=== PATIENT | male | born 1950 | race Caucasian/White ===

== ENCOUNTER 2017-08-22 12:39 | Day surgery (SDC) | payer MEDICARE ==
[~2017-08-22 12:39] MED LIST: Lactated Ringers 1,000 ML IV SCH; Propofol 200 MG/20 ML SDV ONE; Sodium Chloride 0.9% 5 ML Syringe FLUSH PRN
[2017-08-22] MEDS ORDERED: Propofol 200 MG/20 ML SDV ONE (13:13)
[2017-08-22] MEDS ORDERED: Propofol 200 MG/20 ML SDV IV ONE (13:42)
--- NOTE | 2017-08-22 13:47 | PCM.PN ---
- General Info Date of Service: 08/22/17 - Review of Systems Systems Review Comment:: 66-year-old male referred for his initial screening colonoscopy. Patient has been diagnosed with bladder cancer. He has also been diagnosed with CLL. He is medically stable to proceed with colonoscopy today. I have discussed the proposed colonoscopy with the patient. Risks such as but not limited to bleeding and GI injury reviewed. He appears to understand and agrees to proceed. - Patient Data Vitals - Most Recent: Last Vital Signs Temp 98.7 F 08/22/17 13:09 Pulse 54 L 08/22/17 13:09 Resp 16 08/22/17 13:09 BP 122/67 08/22/17 13:09 Pulse Ox 96 08/22/17 13:09 Weight - Most Recent: 77.111 kg Med Orders - Current: Current Medications Lactated Ringer's (Ringers, Lactated) 1,000 mls @ 50 mls/hr IV ASDIRECTED NEFTALI Last Admin: 08/22/17 13:31 Dose: 50 mls/hr Sodium Chloride (Syrex Flush) 5 ml FLUSH Q8HR PRN PRN Reason: Keep Vein Open Discontinued Medications Propofol (Diprivan 20 Ml) Confirm Administered Dose 200 mg .ROUTE .STK-MED ONE Stop: 08/22/17 12:23 Propofol (Diprivan 20 Ml) Confirm Administered Dose 200 mg .ROUTE .STK-MED ONE Stop: 08/22/17 12:24 - Problem List Review Problem List Initiated/Reviewed/Updated: Yes - My Orders Last 24 Hours: My Active Orders 08/22/17 12:30 Patient to Empty Bladder [RC] ASDIRECTED Peripheral IV Care [RC] . DIRECTED Verify Patient Consent Obtain [RC] ASDIRECTED Lactated Ringers [Ringers, Lactated] 1,000 ml IV ASDIRECTED Sodium Chloride 0.9% [Syrex Flush] 5 ml FLUSH Q8HR PRN Peripheral IV Insertion Adult [OM.PC] Routine 08/22/17 Breakfast Nothing Per Oral Diet [DIET] - Assessment Assessment:: Colon cancer screening Personal history of cancer - Plan Plan:: Colonoscopy
--- NOTE | 2017-08-22 14:43 | PCM.OPNOTE ---
- General Post-Op/Procedure Note Date of Surgery/Procedure: 08/22/17 Operative Procedure(s): Colonoscopy with polypectomy Findings: Multiple colon polyps Pre Op Diagnosis: Colon cancer screening Post-Op Diagnosis: Colon polyps Anesthesia Technique: MAC Primary Surgeon: Bang Carr Pathology: Colon polyps Output, Urine Amount: 0 EBL in mLs: 2 Complications: None Condition: Good
--- NOTE | 2017-08-23 00:58 | OR ---
DATE OF SURGERY: 08/22/2017 SURGEON: Bang Carr MD REFERRING PROVIDER: Bozena Camilo MD PREOPERATIVE DIAGNOSIS: 1. Colon cancer screening. 2. Personal history of cancer. POSTOPERATIVE DIAGNOSIS: Colon polyps. OPERATION PERFORMED: Colonoscopy with polypectomy. INDICATIONS FOR SURGERY: This 66-year-old male presents today for his initial screening colonoscopy. He has been diagnosed with both bladder cancer as well as CLL. FINDINGS: Multiple polyps are noted on today's exam. There is a pedunculated 1 cm polyp noted in the sigmoid colon 25 cm from the anal verge. In the cecum, there was a cluster of two polyps, 4 mm polyp and an 8 mm polyp, both sessile in configuration. There is another 2 mm polyp noted in the ascending colon. The remainder of the colon appears normal. PROCEDURE IN DETAIL: The patient was taken to the operating room. He was given intravenous sedation and with him in the left lateral decubitus position, digital rectal exam was performed showing no rectal masses. The Olympus colonoscope was inserted into the rectum. Retroflexed examination of the rectal canal was performed. The scope was then carefully advanced under direct visualization through the entire length of the colon until the cecum was reached. Cecal acquisition was confirmed by noting the normal internal cecal anatomy including the appendiceal orifice and ileocecal valve. The light was also noted to transilluminate the abdominal wall in the right lower quadrant. The colon was somewhat tortuous and was it was difficult to maneuver the scope through the entire colon but eventually this was able to be safely accomplished. In the cecum, the above described two polyps were identified. The smaller polyp was removed with biopsy forceps and the larger polyp was removed with a cautery snare. These were submitted as a single specimen. After the cecum had been examined, the scope was withdrawn, and in the ascending colon, the small polyp was cauterized and destroyed. In the sigmoid colon during the scope withdrawal, the larger polyp was identified, this was removed with a cautery snare and retrieved. After the examination had been completed and with no sign of any bleeding or other complication, the scope was removed and the patient was taken from the operating room in satisfactory condition. ESTIMATED BLOOD LOSS: 2 mL. COMPLICATIONS: None. PROGNOSIS: Good. /[id number]/MODL
== END 2017-08-22 16:00 | disposition home or self-care (01) ==
LOC: KA.SDS 12:39
PROVIDERS: ATTEND Surgery
DX: Z12.11 Encounter for screening for malignant neoplasm of colon (principal); D12.0 Benign neoplasm of cecum; D12.5 Benign neoplasm of sigmoid colon; Z85.038 Personal history of other malignant neoplasm of large intestine; Z79.899 Other long term (current) drug therapy; Z87.891 Personal history of nicotine dependence
CPT/HCPCS: 00811; J2704; J7120

== ENCOUNTER 2020-03-10 19:57 | Observation (INO) | payer MEDICARE, OTHER ==
--- NOTE | 2020-03-10 20:52 | EDM.PDOC ---
ED HPI GENERAL MEDICAL PROBLEM - General Chief Complaint: General Stated Complaint: SHORTNESS OF BREATH Time Seen by Provider: 03/10/20 20:20 Source of Information: Reports: Patient History Limitations: Reports: No Limitations - History of Present Illness INITIAL COMMENTS - FREE TEXT/NARRATIVE: 69 YO WM PRESENTS TO ER COMPLAINING OF SUDDEN ONSET SHORTNESS OF BREATH WHICH BEGAN 4 HOURS AGO. PT REPORTS PAIN IS PLEURITIC IN NATURE WITH ASSOCIATED LEFT SHOULDER PAIN AND MILD LEFT SIDED CHEST PAIN. PT DENIES N/V, NO DIAPHORESIS, NO TOBACCO USE. PT REPORTS HE CAN'T TAKE A DEEP BREATH WITHOUT NOTICING THE PAIN INTO HIS SHOULDER AND CHEST. PT DENIES FEVER/CHILLS, NO COUGH/CONGESTION, NO KNOWN COVID EXPOSURES. PT WITH HISTORY OF CLL AND CURRENTLY TAKING DAILY ORAL CHEMO FOR THERAPY. Onset: Today Onset Date: 03/10/20 Onset Time: 16:00 Location: Reports: Chest Quality: Reports: Sharp Severity: Moderate Improves with: Reports: None Worsens with: Reports: Breathing Associated Symptoms: Reports: Chest Pain, Shortness of Breath. Denies: Cough, cough w sputum, Diaphoresis, Fever/Chills, Headaches, Nausea/Vomiting, Rash Left Chest Pain Score (Numeric/FACES): 10 Headache Pain Score (Numeric/FACES): 8 - Related Data Allergies Allergy/AdvReac Type Severity Reaction Status Date / Time No Known Drug Allergies Allergy NKDA Verified 03/10/20 20:38 Home Meds: Home Meds Allopurinol [Zyloprim] 300 mg PO DAILY 03/10/20 [History] Ibrutinib [Imbruvica] 420 mg PO DAILY@1200 03/10/20 [History] Loperamide HCl [Loperamide] 2 mg PO DAILY PRN 03/10/20 [History] Multivitamin 1 tab PO DAILY 03/10/20 [History] Past Medical History Hematologic History: Reports: Iron Deficiency Oncologic (Cancer) History: Reports: Bladder Social & Family History - Family History Family Medical History: Noncontributory - Caffeine Use Caffeine Use: Reports: Coffee ED ROS GENERAL - Review of Systems Review Of Systems: See Below Constitutional: Reports: No Symptoms HEENT: Reports: No Symptoms Respiratory: Reports: Shortness of Breath, Pleuritic Chest Pain. Denies: Hemoptysis Cardiovascular: Reports: Chest Pain Endocrine: Reports: No Symptoms GI/Abdominal: Reports: No Symptoms : Reports: No Symptoms Musculoskeletal: Reports: No Symptoms Skin: Reports: No Symptoms Neurological: Reports: No Symptoms Psychiatric: Reports: No Symptoms Hematologic/Lymphatic: Reports: No Symptoms Immunologic: Reports: No Symptoms ED EXAM, GENERAL - Physical Exam Exam: See Below Exam Limited By: No Limitations General Appearance: Alert, WD/WN, No Apparent Distress Neck: Normal Inspection, Supple, Non-Tender, Full Range of Motion Respiratory/Chest: No Respiratory Distress, Lungs Clear, Normal Breath Sounds, No Accessory Muscle Use, Chest Non-Tender, Decreased Breath Sounds Cardiovascular: Normal Peripheral Pulses, Regular Rate, Rhythm, No Edema, No Gallop, No JVD, No Murmur, No Rub GI/Abdominal: Normal Bowel Sounds, Soft, Non-Tender, No Organomegaly, No Distention, No Abnormal Bruit, No Mass Back Exam: Normal Inspection, Full Range of Motion, NT Extremities: Normal Inspection, Normal Range of Motion, Non-Tender, Normal Capillary Refill, No Pedal Edema Neurological: Alert, Oriented, CN II-XII Intact, Normal Cognition, Normal Gait, Normal Reflexes, No Motor/Sensory Deficits Psychiatric: Normal Affect, Normal Mood Skin Exam: Warm, Dry, Intact, Normal Color, No Rash Lymphatic: No Adenopathy EKG INTERPRETATION EKG Date: 03/10/20 Time: 20:15 Rhythm: NSR Rate (Beats/Min): 70 [place]: Normal P-Wave: Present QRS: Normal ST-T: Normal QT: Normal Comparison: NA - No Prior EKG Course - Vital Signs Last Recorded V/S: Last Vital Signs Temp 37.2 C 03/10/20 20:00 Pulse 68 03/10/20 21:55 Resp 20 03/10/20 21:55 BP 131/74 03/10/20 21:55 Pulse Ox 98 03/10/20 21:55 - Orders/Labs/Meds Orders: Active Orders 24 hr Category Date Time Status EKG Documentation Completion [RC] ASDIRECTED Care 03/10/20 20:41 Active Chest 1V Frontal [CR] Stat Exams 03/10/20 20:40 Ordered Chest w Cont [CT] Stat Exams 03/10/20 20:42 Ordered Chest w wo Cont [CT] Stat Exams 03/10/20 20:40 Stop Req EKG 12 Lead [EK] Stat Ther 10/06/20 20:40 Ordered Labs: Laboratory Tests 03/10/20 03/10/20 03/10/20 Range/Units 20:20 20:20 20:20 WBC 98.60 H* (5.00-10.00) 10^3/uL RBC 3.89 L (4.50-6.00) 10^6/uL Hgb 12.6 L (13.0-17.0) g/dL Hct 40.6 (40.0-52.0) % MCV 104.4 H (82.0-92.0) fL MCH 32.4 H (27.0-31.0) pg MCHC 31.0 L (32.0-36.0) g/dL RDW 14.4 (11.5-14.5) % Plt Count 143 L (150-400) 10^3/uL MPV 10.3 (7.4-10.4) fL Immature Gran % (Auto) 0.1 (0.0-5.0) % Neut % (Auto) 7.6 L (50.0-70.0) % Lymph % (Auto) 91.8 H (20.0-40.0) % [place] % (Auto) 0.2 L (2.0-8.0) % Eos % (Auto) 0.2 L (1.0-3.0) % Baso % (Auto) 0.1 (0.0-1.0) % Neut # (Auto) 7.46 H (2.50-7.00) 10^3/uL Lymph # (Auto) 90.55 H (1.00-4.00) 10^3/uL [place] # (Auto) 0.22 (0.10-0.80) 10^3/uL Eos # (Auto) 0.17 (0.10-0.30) 10^3/uL Baso # (Auto) 0.08 (0.00-0.10) 10^3/uL Immature Gran # (Auto) 0.12 (0.00-0.50) 10^3/uL PT 11.4 H (9.2-11.2) SEC INR 1.1 (0.9-1.1) APTT 25.1 (22.8-31.4) SEC D-Dimer, Quantitative < 100 (<400) ng/mL Sodium 138 (136-145) mmol/L Potassium 3.8 (3.3-5.3) mmol/L Chloride 103 (98-115) mmol/L Carbon Dioxide 24.2 (21.0-32.0) mmol/L Anion Gap 14.6 (5-15) mmol/L BUN 18 (6-25) mg/dL Creatinine 0.86 (0.51-1.17) mg/dL Est Cr Clr Drug Dosing 78.02 mL/min Estimated GFR (MDRD) > 60 mL/min Glucose 112 H (75 - 99) mg/dL Calcium 8.6 L (8.7-10.3) mg/dL Total Bilirubin 0.3 (0.2-1.0) mg/dL AST 14 L (15-37) U/L ALT 16 (12-78) U/L Alkaline Phosphatase 64 (46-116) IU/L Creatine Kinase 64 (26-276) U/L CK-MB (CK-2) 1.10 (0.00-4.30) ng/mL Troponin I 0.08 H* (0.00-0.070) ng/mL Total Protein 6.4 (6.4-8.2) g/dL Albumin 3.65 (3.00-4.80) g/dL SARS CoV-2 RNA Rapid ABBEY (NEGATIVE) 03/10/20 Range/Units 20:59 WBC (5.00-10.00) 10^3/uL RBC (4.50-6.00) 10^6/uL Hgb (13.0-17.0) g/dL Hct (40.0-52.0) % MCV (82.0-92.0) fL MCH (27.0-31.0) pg MCHC (32.0-36.0) g/dL RDW (11.5-14.5) % Plt Count (150-400) 10^3/uL MPV (7.4-10.4) fL Immature Gran % (Auto) (0.0-5.0) % Neut % (Auto) (50.0-70.0) % Lymph % (Auto) (20.0-40.0) % [place] % (Auto) (2.0-8.0) % Eos % (Auto) (1.0-3.0) % Baso % (Auto) (0.0-1.0) % Neut # (Auto) (2.50-7.00) 10^3/uL Lymph # (Auto) (1.00-4.00) 10^3/uL [place] # (Auto) (0.10-0.80) 10^3/uL Eos # (Auto) (0.10-0.30) 10^3/uL Baso # (Auto) (0.00-0.10) 10^3/uL Immature Gran # (Auto) (0.00-0.50) 10^3/uL PT (9.2-11.2) SEC INR (0.9-1.1) APTT (22.8-31.4) SEC D-Dimer, Quantitative (<400) ng/mL Sodium (136-145) mmol/L Potassium (3.3-5.3) mmol/L Chloride (98-115) mmol/L Carbon Dioxide (21.0-32.0) mmol/L Anion Gap (5-15) mmol/L BUN (6-25) mg/dL Creatinine (0.51-1.17) mg/dL Est Cr Clr Drug Dosing mL/min Estimated GFR (MDRD) mL/min Glucose (75 - 99) mg/dL Calcium (8.7-10.3) mg/dL Total Bilirubin (0.2-1.0) mg/dL AST (15-37) U/L ALT (12-78) U/L Alkaline Phosphatase (46-116) IU/L Creatine Kinase (26-276) U/L CK-MB (CK-2) (0.00-4.30) ng/mL Troponin I (0.00-0.070) ng/mL Total Protein (6.4-8.2) g/dL Albumin (3.00-4.80) g/dL SARS CoV-2 RNA Rapid ABBEY Negative (NEGATIVE) Meds: Medications Discontinued Medications Generic Name Dose Route Start Last Admin Trade Name Freq PRN Reason Stop Dose Admin Morphine Sulfate 4 mg 03/10/20 21:13 03/10/20 21:39 Morphine IVPUSH 03/10/20 21:14 4 mg ONETIME ONE Administration Ondansetron HCl 4 mg 03/10/20 21:13 03/10/20 21:37 Zofran IVPUSH 03/10/20 21:14 4 mg ONETIME ONE Administration - Radiology Interpretation Free Text/Narrative:: CXR- NAD CT CHEST- NO PE- POSSIBLE EARLY CONSOLIDATION IN RIGHT LUNG BASE Departure - Departure Time of Disposition: 22:32 Disposition: Refer to Observation Condition: Fair Clinical Impression: CLL (chronic lymphocytic leukemia) Chest pain Qualifiers: Chest pain type: unspecified Qualified Code(s): R07.9 - Chest pain, unspecified - Discharge Information Referrals: Estefanía Davila MD [Physician] - Forms: ED Department Discharge Sepsis Event Note (ED) - Focused Exam Vital Signs: Vital Signs Temp Pulse Resp BP Pulse Ox 03/10/20 21:55 68 20 131/74 98 03/10/20 21:04 68 20 110/68 97 03/10/20 20:50 70 24 H 114/73 97 03/10/20 20:30 71 18 116/69 98 03/10/20 20:15 120/62 03/10/20 20:00 37.2 C 78 20 131/62 96 - My Orders Last 24 Hours: My Active Orders 03/10/20 20:40 Chest 1V Frontal [CR] Stat Chest w wo Cont [CT] Stat EKG 12 Lead [EK] Stat 03/10/20 20:41 EKG Documentation Completion [RC] ASDIRECTED 03/10/20 20:42 Chest w Cont [CT] Stat - Assessment/Plan Last 24 Hours: My Active Orders 03/10/20 20:40 Chest 1V Frontal [CR] Stat Chest w wo Cont [CT] Stat EKG 12 Lead [EK] Stat 03/10/20 20:41 EKG Documentation Completion [RC] ASDIRECTED 03/10/20 20:42 Chest w Cont [CT] Stat Assessment:: 1. CHEST PAIN 2. MILDLY ELEVATED TROP I 3. CHRONIC LYMPHOCYTIC LEUKEMIA Plan: 1. ADMIT TO MEDICINE- ART DAVILA 2. ASA/NITRO 3. SUPPORTIVE CARE 4. ORDERS PER DR ART DAVILA- PLAVIX 75MG DAILY AND LOVENOX 30MG SQ QD
[2020-03-10 20:59] LABS: PTT,PARTIAL THROMBOPLSTIN TIME 25.1 SEC (22.8-31.4)
[2020-03-10 21:06] LABS: ANION GAP 14.6 mmol/L (5-15); CHLORIDE,CL 103 mmol/L (98-115); SODIUM,NA 138 mmol/L (136-145)
[2020-03-10] MEDS ORDERED: Morphine 4 MG/ML VIAL IVPUSH ONE (21:13)
[2020-03-10] MEDS ORDERED: Ondansetron 4 MG/2 ML SDV IVPUSH ONE (21:13)
--- NOTE | 2020-03-10 21:17 | CR ---
[id number] RAD/RAD Chest Portable EXAM: PORTABLE CHEST RADIOGRAPH. INDICATION: SHORTNESS OF BREATH CHEST PAIN COMPARISON: CORRELATION IS MADE WITH THE CAT SCAN OF DECEMBER 27, 2019 FINDINGS: The lungs are clear. The cardiomediastinal contour is prominent but stable. The regional bones and soft tissues are unremarkable. There is no pneumothorax. IMPRESSION: NO ACUTE PROCESS. Dominic Guidry MD 03/10/20 [id number] Thank you for allowing us to participate in the care of your patient.
[2020-03-10] MEDS ORDERED: Sodium Chloride 0.9% 10 ML Syringe FLUSH PRN (22:36)
[2020-03-10] MEDS ORDERED: Ondansetron 4 MG/2 ML SDV IV PRN (22:36)
[2020-03-10] MEDS: Nitroglycerin 2% Oint 1 GM UD Packet TOP SCH (23:07)
[2020-03-10] MEDS: Enoxaparin 30 MG/0.3 ML Syringe SUBCUT SCH (23:08)
[2020-03-11] MEDS ORDERED: Lidocaine 2% 100 MG/5 ML Syringe IVPUSH PRN (01:34)
[2020-03-11] MEDS ORDERED: Atropine 0.1 MG/ML 10 ML Syringe IVPUSH PRN (01:34)
[2020-03-11] MEDS ORDERED: Nitroglycerin 0.4 MG Tab.SL SL PRN (01:34)
[2020-03-11] MEDS ORDERED: EPINEPHrine 1:10,000 1 MG/10 ML Syringe IVPUSH PRN (01:34)
[2020-03-11] MEDS: Nitroglycerin 2% Oint 1 GM UD Packet TOP SCH (04:09)
[2020-03-11] MEDS: Morphine 2 MG/ML SYRINGE IVPUSH PRN ×2 (04:16→06:15)
[2020-03-11 07:58] LABS: ANION GAP 13.4 mmol/L (5-15); CHLORIDE,CL 103 mmol/L (98-115); SODIUM,NA 135 mmol/L (136-145)
[2020-03-11] MEDS: Enoxaparin 30 MG/0.3 ML Syringe SUBCUT SCH (08:21)
[2020-03-11] MEDS ORDERED: Allopurinol 100 MG Tab PO SCH (09:00)
--- NOTE | 2020-03-11 10:48 | PCM.HP.2 ---
H&P History of Present Illness - General Date of Service: 03/11/20 Admit Problem/Dx: Admission Diagnosis/Problem Admission Diagnosis/Problem Chest pain Source of Information: Patient, Old Records, RN History Limitations: Reports: No Limitations Left Chest Pain Score (Numeric/FACES): 4 Headache Pain Score (Numeric/FACES): 8 - Related Data Allergies/Adverse Reactions: Allergies Allergy/AdvReac Type Severity Reaction Status Date / Time No Known Drug Allergies Allergy NKDA Verified 03/10/20 20:38 Home Medications: Home Meds Allopurinol [Zyloprim] 300 mg PO DAILY 03/10/20 [History] Ibrutinib [Imbruvica] 420 mg PO DAILY@1200 03/10/20 [History] Loperamide HCl [Loperamide] 2 mg PO DAILY PRN 03/10/20 [History] Multivitamin 1 tab PO DAILY 03/10/20 [History] Past Medical History HEENT History: Reports: Impaired Vision Cardiovascular History: Reports: None Respiratory History: Reports: COPD Gastrointestinal History: Reports: None Musculoskeletal History: Reports: Fracture Neurological History: Reports: None Psychiatric History: Reports: None Endocrine/Metabolic History: Reports: None Hematologic History: Reports: Iron Deficiency Oncologic (Cancer) History: Reports: Bladder Other Oncologic History: CLL Dermatologic History: Reports: None - Infectious Disease History Infectious Disease History: Reports: Chicken Pox - Past Surgical History Cardiovascular Surgical History: Reports: None Respiratory Surgical History: Reports: None GI Surgical History: Reports: Hernia Repair/Other Male Surgical History: Reports: Other (See Below) Other Male Surgeries/Procedures: Bladder surgery Endocrine Surgical History: Reports: None Neurological Surgical History: Reports: None Musculoskeletal Surgical History: Reports: None Dermatological Surgical History: Reports: None Social & Family History - Family History Family Medical History: Noncontributory - Tobacco Use Smoking Status *Q: Current Some Day Smoker Years of Tobacco use: 30 Packs/Tins Daily: 0 Tobacco Use Comment: States he quit smoking cigarettes in 2017. Occasionally smokes a cigar. - Caffeine Use Caffeine Use: Reports: Coffee - Recreational Drug Use Recreational Drug Use: No H&P Review of Systems - Review of Systems: Review Of Systems: See Below General: Denies: Fever, Chills, Malaise, Weakness, Fatigue, Decreased Appetite, Weight Loss HEENT: Reports: Sore Throat, Other (Eyes dry throat dry) Pulmonary: Reports: Pleuritic Chest Pain, Cough. Denies: Wheezing, Hemoptysis Cardiovascular: Reports: Chest Pain. Denies: Palpitations, Dyspnea on Exertion Gastrointestinal: Reports: No Symptoms Musculoskeletal: Reports: Shoulder Pain (Left shoulder pain) Skin: Reports: Wound (Lacerated for head prior to admission when he bumped into camper). Denies: Rash Psychiatric: Reports: No Symptoms Neurological: Reports: No Symptoms Hematologic/Lymphatic: Reports: Anemia Exam - Exam Exam: See Below - Vital Signs Vital Signs: Last Vital Signs Temp 98.7 F 03/11/20 06:10 Pulse 77 03/11/20 06:10 Resp 18 03/11/20 06:10 BP 100/55 L 03/11/20 06:10 Pulse Ox 92 L 03/11/20 06:10 Weight: 150 lb - Exam Quality Assessment: DVT Prophylaxis. No: Supplemental Oxygen, Skin Breakdown General: Alert, Oriented, Cooperative HEENT: Conjunctiva Clear, Hearing Intact, Posterior Pharynx Clear Neck: Supple Lungs: Clear to Auscultation, Normal Respiratory Effort. No: Decreased Breath Sounds, Crackles, Rales, Rub Cardiovascular: Regular Rate, Regular Rhythm, Normal S1, Normal S2, Other (Negative for any squeaking) GI/Abdominal Exam: Soft Rectal (Males) Exam: Deferred Extremities: Other (engorged venous varicosities bilateral). No: Pedal Edema, Leg Pain Skin: Dry. No: Rash, Petechia Neurological: Sensation Intact Neuro Extensive - Mental Status: Alert, Oriented x3, Normal Mood/Affect, Normal Cognition Neuro Extensive - Motor, Sensory, Reflexes: No: Facial palsy (L), Facial Palsy (R) Psychiatric: Alert, Normal Affect, Normal Mood - Patient Data Lab Results Last 24 hrs: Laboratory Results - last 24 hr 03/10/20 03/10/20 03/10/20 Range/Units 20:20 20:20 20:20 WBC 98.60 H* (5.00-10.00) 10^3/uL RBC 3.89 L (4.50-6.00) 10^6/uL Hgb 12.6 L (13.0-17.0) g/dL Hct 40.6 (40.0-52.0) % MCV 104.4 H (82.0-92.0) fL MCH 32.4 H (27.0-31.0) pg MCHC 31.0 L (32.0-36.0) g/dL RDW 14.4 (11.5-14.5) % Plt Count 143 L (150-400) 10^3/uL MPV 10.3 (7.4-10.4) fL Immature Gran % (Auto) 0.1 (0.0-5.0) % Neut % (Auto) 7.6 L (50.0-70.0) % Lymph % (Auto) 91.8 H (20.0-40.0) % Avery % (Auto) 0.2 L (2.0-8.0) % Eos % (Auto) 0.2 L (1.0-3.0) % Baso % (Auto) 0.1 (0.0-1.0) % Neut # (Auto) 7.46 H (2.50-7.00) 10^3/uL Lymph # (Auto) 90.55 H (1.00-4.00) 10^3/uL Avery # (Auto) 0.22 (0.10-0.80) 10^3/uL Eos # (Auto) 0.17 (0.10-0.30) 10^3/uL Baso # (Auto) 0.08 (0.00-0.10) 10^3/uL Immature Gran # (Auto) 0.12 (0.00-0.50) 10^3/uL PT 11.4 H (9.2-11.2) SEC INR 1.1 (0.9-1.1) APTT 25.1 (22.8-31.4) SEC D-Dimer, Quantitative < 100 (<400) ng/mL Sodium 138 (136-145) mmol/L Potassium 3.8 (3.3-5.3) mmol/L Chloride 103 (98-115) mmol/L Carbon Dioxide 24.2 (21.0-32.0) mmol/L Anion Gap 14.6 (5-15) mmol/L BUN 18 (6-25) mg/dL Creatinine 0.86 (0.51-1.17) mg/dL Est Cr Clr Drug Dosing 78.02 mL/min Estimated GFR (MDRD) > 60 mL/min Glucose 112 H (75 - 99) mg/dL Calcium 8.6 L (8.7-10.3) mg/dL Total Bilirubin 0.3 (0.2-1.0) mg/dL AST 14 L (15-37) U/L ALT 16 (12-78) U/L Alkaline Phosphatase 64 (46-116) IU/L Creatine Kinase 64 (26-276) U/L CK-MB (CK-2) 1.10 (0.00-4.30) ng/mL Troponin I 0.08 H* (0.00-0.070) ng/mL Total Protein 6.4 (6.4-8.2) g/dL Albumin 3.65 (3.00-4.80) g/dL SARS CoV-2 RNA Rapid ABBEY (NEGATIVE) 03/10/20 03/11/20 03/11/20 Range/Units 20:59 01:05 07:15 WBC 54.23 H* D (5.00-10.00) 10^3/uL RBC 3.25 L (4.50-6.00) 10^6/uL Hgb 10.8 L D (13.0-17.0) g/dL Hct 33.9 L (40.0-52.0) % MCV 104.3 H (82.0-92.0) fL MCH 33.2 H (27.0-31.0) pg MCHC 31.9 L (32.0-36.0) g/dL RDW 14.4 (11.5-14.5) % Plt Count 94 L (150-400) 10^3/uL MPV 10.5 H (7.4-10.4) fL Immature Gran % (Auto) 0.1 (0.0-5.0) % Neut % (Auto) 9.7 L (50.0-70.0) % Lymph % (Auto) 89.6 H (20.0-40.0) % Avery % (Auto) 0.5 L (2.0-8.0) % Eos % (Auto) 0.0 L (1.0-3.0) % Baso % (Auto) 0.1 (0.0-1.0) % Neut # (Auto) 5.32 (2.50-7.00) 10^3/uL Lymph # (Auto) 48.57 H (1.00-4.00) 10^3/uL Avery # (Auto) 0.25 (0.10-0.80) 10^3/uL Eos # (Auto) 0.01 L (0.10-0.30) 10^3/uL Baso # (Auto) 0.05 (0.00-0.10) 10^3/uL Immature Gran # (Auto) 0.03 (0.00-0.50) 10^3/uL PT (9.2-11.2) SEC INR (0.9-1.1) APTT (22.8-31.4) SEC D-Dimer, Quantitative (<400) ng/mL Sodium (136-145) mmol/L Potassium (3.3-5.3) mmol/L Chloride (98-115) mmol/L Carbon Dioxide (21.0-32.0) mmol/L Anion Gap (5-15) mmol/L BUN (6-25) mg/dL Creatinine (0.51-1.17) mg/dL Est Cr Clr Drug Dosing mL/min Estimated GFR (MDRD) mL/min Glucose (75 - 99) mg/dL Calcium (8.7-10.3) mg/dL Total Bilirubin (0.2-1.0) mg/dL AST (15-37) U/L ALT (12-78) U/L Alkaline Phosphatase (46-116) IU/L Creatine Kinase (26-276) U/L CK-MB (CK-2) (0.00-4.30) ng/mL Troponin I 0.06 (0.00-0.070) ng/mL Total Protein (6.4-8.2) g/dL Albumin (3.00-4.80) g/dL SARS CoV-2 RNA Rapid ABBEY Negative (NEGATIVE) 03/11/20 Range/Units 07:15 WBC (5.00-10.00) 10^3/uL RBC (4.50-6.00) 10^6/uL Hgb (13.0-17.0) g/dL Hct (40.0-52.0) % MCV (82.0-92.0) fL MCH (27.0-31.0) pg MCHC (32.0-36.0) g/dL RDW (11.5-14.5) % Plt Count (150-400) 10^3/uL MPV (7.4-10.4) fL Immature Gran % (Auto) (0.0-5.0) % Neut % (Auto) (50.0-70.0) % Lymph % (Auto) (20.0-40.0) % Avery % (Auto) (2.0-8.0) % Eos % (Auto) (1.0-3.0) % Baso % (Auto) (0.0-1.0) % Neut # (Auto) (2.50-7.00) 10^3/uL Lymph # (Auto) (1.00-4.00) 10^3/uL Avery # (Auto) (0.10-0.80) 10^3/uL Eos # (Auto) (0.10-0.30) 10^3/uL Baso # (Auto) (0.00-0.10) 10^3/uL Immature Gran # (Auto) (0.00-0.50) 10^3/uL PT (9.2-11.2) SEC INR (0.9-1.1) APTT (22.8-31.4) SEC D-Dimer, Quantitative (<400) ng/mL Sodium 135 L (136-145) mmol/L Potassium 4.1 (3.3-5.3) mmol/L Chloride 103 (98-115) mmol/L Carbon Dioxide 22.7 (21.0-32.0) mmol/L Anion Gap 13.4 (5-15) mmol/L BUN 19 (6-25) mg/dL Creatinine 0.85 (0.51-1.17) mg/dL Est Cr Clr Drug Dosing 78.93 mL/min Estimated GFR (MDRD) > 60 mL/min Glucose 108 H (75 - 99) mg/dL Calcium 8.1 L (8.7-10.3) mg/dL Total Bilirubin (0.2-1.0) mg/dL AST (15-37) U/L ALT (12-78) U/L Alkaline Phosphatase (46-116) IU/L Creatine Kinase (26-276) U/L CK-MB (CK-2) (0.00-4.30) ng/mL Troponin I < 0.04 (0.00-0.070) ng/mL Total Protein (6.4-8.2) g/dL Albumin (3.00-4.80) g/dL SARS CoV-2 RNA Rapid ABBEY (NEGATIVE) Result Diagrams: 03/11/20 07:15 03/11/20 07:15 Sepsis Event Note - Evaluation Sepsis Screening Result: No Definite Risk - Focused Exam Vital Signs: Vital Signs Temp Pulse Resp BP BP Pulse Ox 03/11/20 06:10 98.7 F 77 18 100/55 L 92 L 03/11/20 03:00 99.1 F 71 20 107/61 91 L 03/10/20 22:45 98.1 F 74 20 109/66 92 L 03/10/20 22:38 67 20 129/87 97 Problem List Initiated/Reviewed/Updated: Yes Orders Last 24hrs: Active Orders 24 hr Category Date Time Status Patient Status [ADT] Routine ADT 03/10/20 22:36 Active Cardiac Monitoring [RC] 03,07,11,15,19,23 Care 03/10/20 22:39 Active EKG Documentation Completion [RC] ASDIRECTED Care 03/10/20 23:09 Active Peripheral IV Care [RC] 0900,2100 Care 03/10/20 22:38 Active Up With Assistance [RC] ASDIRECTED Care 03/10/20 22:36 Active VTE/DVT Education [RC] PER UNIT ROUTINE Care 03/10/20 22:36 Active Vital Signs [RC] 0300,0700,1100,1500,1900,2300 Care 03/10/20 22:36 Active 2 Gram Sodium Diet [DIET] Diet 03/11/20 Breakfast Active Chest w Cont [CT] Stat Exams 03/10/20 20:42 Taken SED RATE [REF] Routine Lab 03/11/20 07:15 Received Aspirin [Halfprin] Med 03/11/20 21:00 Active 81 mg PO BEDTIME Atropine [Atropine 0.1 MG/ML] Med 03/11/20 01:34 Active 0.5 - 1 mg IVPUSH ASDIRECTED PRN EPINEPHrine [EPINEPHrine 1:10,000] Med 03/11/20 01:34 Active 1 mg IVPUSH ASDIRECTED PRN Enoxaparin [Lovenox] Med 03/10/20 22:45 Active 30 mg SUBCUT DAILY Ibrutinib [Imbruvica] Med 03/11/20 12:00 Pending 420 mg PO DAILY@1200 Lidocaine 2% [Xylocaine 2%] Med 03/11/20 01:34 Active 70 - 100 mg IVPUSH ASDIRECTED PRN Morphine Med 03/10/20 22:36 Active 2 mg IVPUSH Q2H PRN Nitroglycerin [Nitro-Bid 2%] Med 03/10/20 22:45 Active 1 gm TOP Q6H Nitroglycerin [Nitrostat] Med 03/11/20 01:34 Active 0.4 mg SL ASDIRECTED PRN Ondansetron [Zofran] Med 03/10/20 22:36 Active 4 mg IV Q6H PRN Sodium Chloride 0.9% [Saline Flush] Med 03/10/20 22:36 Active 10 ml FLUSH Q8HR PRN allopurinoL [Zyloprim] Med 03/11/20 09:00 Active 300 mg PO DAILY Peripheral IV Insertion Adult [OM.PC] Routine Oth 03/10/20 22:36 Ordered Resuscitation Status Routine Resus Stat 03/10/20 22:36 Ordered EKG 12 Lead [EK] AM Ther 03/11/20 05:11 Ordered EKG 12 Lead [EK] Stat Ther 03/10/20 20:40 Stop Req EKG 12 Lead [EK] Stat Ther 03/10/20 22:30 Ordered Medication Orders Allopurinol (Zyloprim) 300 mg PO DAILY PENDING SALE TO [facility] Last Admin: 03/11/20 08:20 Dose: 300 mg Documented by: CHELLE Aspirin (Halfprin) 81 mg PO BEDTIME PENDING SALE TO [facility] Atropine Sulfate (Atropine 0.1 Mg/Ml) 0.5 - 1 mg IVPUSH ASDIRECTED PRN PRN Reason: Heart. Enoxaparin Sodium (Lovenox) 30 mg SUBCUT DAILY PENDING SALE TO [facility] Last Admin: 03/11/20 08:21 Dose: 30 mg Documented by: Admin: 03/10/20 23:08 Dose: 30 mg Documented by: INÉS Epinephrine HCl (Epinephrine 1:10,000) 1 mg IVPUSH ASDIRECTED PRN PRN Reason: Heart. Lidocaine HCl (Xylocaine 2%) 70 - 100 mg IVPUSH ASDIRECTED PRN PRN Reason: Heart. Morphine Sulfate (Morphine) 2 mg IVPUSH Q2H PRN PRN Reason: Pain (severe 7-10) Last Admin: 03/11/20 06:15 Dose: 2 mg Documented by: Admin: 03/11/20 04:16 Dose: 2 mg Documented by: INÉS Nitroglycerin (Nitro-Bid 2%) 1 gm TOP Q6H NEFTALI Last Admin: 03/11/20 04:09 Dose: 1 gm Documented by: Admin: 03/10/20 23:07 Dose: 1 gm Documented by: INÉS Nitroglycerin (Nitrostat) 0.4 mg SL ASDIRECTED PRN PRN Reason: Heart. Non-Formulary Medication (Ibrutinib [Imbruvica]) 420 mg PO DAILY@1200 NEFTALI Ondansetron HCl (Zofran) 4 mg IV Q6H PRN PRN Reason: Nausea/Vomiting Sodium Chloride (Saline Flush) 10 ml FLUSH Q8HR PRN PRN Reason: keep vein open Last Admin: 03/11/20 04:23 Dose: 10 ml Documented by: INÉS Assessment/Plan Comment:: History of present illness Mr Bang is a 69-year-old gentleman med and was admitted into OBS last night through the ED due to pleuritic-type chest pain and shortness of breath. Patient states he had a sudden on short of shortness of breath 4 hours prior to arrival with associated pain in his left shoulder along with some left-sided chest pain. Patient does not have a cardiac history however does smoke a periodic cigar, history of smoking which he did quit, and diagnosed with CLL 2016 in which he is currently on daily kinase inhibitor chemotherapy. Upon admission she had no fever or chills no cough and no known Covid 19 exposure. Patient does have a history of bladder CA and had been attending oncology/urology at [facility] however due to the physicians leaving the area he did transfer his oncology care to Dr Cordon at [facility] Pertinent ED workup/findings Initial troponin 0.08, very slight elevated EKG, sinus rhythm, no ischemic or NC noted Chest CT, no PE, possible early consolidation right lung base Chest XRAY no mediastinal widening no acute process D-dimer, low Covid 19, negative Hospital course no overnight concerns and calls to the on-call provider, he was given Plavix and aspirin on admission. Telemetry showed no concerning arrhythmias. Troponin normalized quickly. Although still has chest pain is improved and his pain is more localized up into his left shoulder region, much improved on leaning forward--however no friction rub or audible squeeks on exam. Primary hospital problems --Pleuritis --CLL, dx 2017, daily kinase inhibitor chemotherapy, WBC down to 54,000 --Anemia, multi-factorial as hx of GAIL, CLL and recent chemotherapy Chronic Problems --Bladder CA --COPD, Disposition/overall plan: --Removed Nitropaste With patient dry throat and dry eyes will have to have an outpatient workup for any autoimmune disorders such as RA Sjogren syndrome. - Mortality Measure Prognosis:: Good
[2020-03-11] MEDS ORDERED: Ibrutinib [Imbruvica] 420 MG PO SCH (12:00)
[2020-03-11] MEDS ORDERED: Aspirin 81 MG Tab.EC PO SCH (21:00)
== END 2020-03-11 18:15 | disposition home or self-care (01) ==
LOC: KA.ED 19:57 → UNDOADMOB 22:35 → KA.MS 22:35
PROVIDERS: ADMIT Physician Assistant Medical; ATTEND Family Medicine
DX: R07.81 Pleurodynia (principal); R06.02 Shortness of breath; R79.89 Other specified abnormal findings of blood chemistry; C91.10 Chronic lymphocytic leukemia of B-cell type not having achieved remission; C67.9 Malignant neoplasm of bladder, unspecified; Z20.828 Contact with and (suspected) exposure to other viral communicable diseases; J44.9 Chronic obstructive pulmonary disease, unspecified; Z87.891 Personal history of nicotine dependence; Z79.899 Other long term (current) drug therapy
CPT/HCPCS: 36415; 71045; 71260; 80048; 80053; 82550; 82553; 83880; 84484; 85025; 85379; 85610; 85652; 85730; 93005; 96372; 96374; 96375; 96376; 99285; A9270; G0378; J1650; J2270; J2405; U0002